=== PATIENT | male | born 1945 | race Asian ===

== ENCOUNTER 2018-10-03 09:48 | Inpatient (IN) | payer OTHER ==
[2018-10-03 10:15] LABS: ADD MAN DIFF? NO
[2018-10-03 10:16] LABS: WHITE BLOOD COUNT 6.8 10^3/ul (4.8-10.8)
[2018-10-03 10:16] LABS: BASOPHIL # 0.1 10^3/ul (0.0-0.1); BASOPHILS % 1.2 % (0.0-2.0); EOSINOPHILS # 0.2 10^3/ul (0.0-0.5); EOSINOPHILS % 2.2 % (0.0-7.0); HEMATOCRIT 41.9 % (42.0-52.0); HEMOGLOBIN 14.1 g/dl (14.0-18.0); LYMPHOCYTES # 1.6 10^3/ul (0.8-2.9); LYMPHOCYTES % 23.7 % (15.0-51.0); MEAN CORPUSCULAR HEMOGLOBIN 31.5 pg (29.0-33.0); MEAN CORPUSCULAR HGB CONC 33.7 g/dl (32.0-37.0); MEAN CORPUSCULAR VOLUME 93.7 fl (82.0-101.0); MEAN PLATELET VOLUME 9.7 fl (7.4-10.4); MONOCYTE # 0.7 10^3/ul (0.3-0.9); MONOCYTES % 10.5 % (0.0-11.0); NEUTROPHIL # 4.2 10^3/ul (1.6-7.5); PLATELET COUNT 243 10^3/UL (140-415); RED BLOOD COUNT 4.47 10^6/ul (4.70-6.10); RED CELL DISTRIBUTION WIDTH 16.5 % (11.5-14.5)
[2018-10-03] MEDS: IODIXANOL LOCM 100 ML BTL (10:31)
[2018-10-03] MEDS: SOD CHLORIDE 0.9% 100 ML (10:31)
[2018-10-03 10:33] LABS: ANION GAP 11 (5-13); BLOOD UREA NITROGEN 31 mg/dl (7-20); CALCIUM 9.4 mg/dl (8.4-10.2); CARBON DIOXIDE 29 mmol/L (21-31); CHLORIDE 105 mmol/L (97-110); CHOL/HDL RATIO 2.1 RATIO; CHOLESTEROL 174 mg/dl (100-200); CREATINE KINASE 49 IU/L (23-200); CREATININE 0.97 mg/dl (0.61-1.24); GLUCOSE 108 mg/dl (70-220); HDL CHOLESTEROL 81 mg/dl (31-75); LDL CHOLESTEROL,CALCULATED 63 mg/dl; POTASSIUM 4.8 mmol/L (3.5-5.1); SODIUM 145 mmol/L (135-144); TRIGLYCERIDES 150 mg/dl (0-149)
[2018-10-03 10:33] LABS: HEMOGLOBIN A1C 5.3 % (0-5.9)
[2018-10-03 10:36] LABS: INR 0.88; PT RATIO 0.9
[2018-10-03 10:37] LABS: PARTIAL THROMBOPLASTIN TIME 31.2 Sec (23.0-35.0)
[2018-10-03 10:47] LABS: CK INDEX 0.7; CK-MB 0.35 ng/ml (0.0-2.4); TROPONIN-I < 0.012 ng/ml (0.000-0.120)
[2018-10-03] MEDS: LORAZEPAM 2 MG INJ IV (11:06)
[2018-10-03] MEDS: SOD CHLORIDE 0.9% 1,000 ML IV ×2 (11:06→16:17)
[2018-10-03] MEDS: LEVETIRACETAM 1000 MG (PMX) 100 ML IVPB (11:40)
[2018-10-03 13:55] LABS: ADD UMIC NO; UR ASCORBIC ACID NEGATIVE (NEGATIVE); UR BILIRUBIN (Dip) NEGATIVE (NEGATIVE); UR BLOOD (Dip) NEGATIVE (NEGATIVE); UR CLARITY CLEAR (CLEAR); UR COLOR STRAW (YELLOW); UR GLUCOSE (Dip) NEGATIVE (NEGATIVE); UR KETONES (Dip) NEGATIVE (NEGATIVE); UR LEUKOCYTE ESTERASE (Dip) NEGATIVE Leu/ul (NEGATIVE); UR NITRITE (Dip) NEGATIVE (NEGATIVE); UR TOTAL PROTEIN (Dip) NEGATIVE (NEGATIVE); UR UROBILINOGEN (Dip) NEGATIVE (NEGATIVE)
[2018-10-03] MEDS ORDERED: ONDANSETRON 4 MG INJ IV ×2 (14:00→15:00)
[2018-10-03] MEDS ORDERED: ACETAMINOPHEN 325 MG TAB PO (14:00)
[2018-10-03] MEDS ORDERED: NACL 0.9% 3 ML SYG IV (15:00)
[2018-10-03 16:14] LABS: HEPATITIS B SURFACE ANTIGEN NEGATIVE (NEGATIVE)
[2018-10-03 16:31] LABS: HEPATITIS C VIRAL ANTIBODY NEGATIVE (NEGATIVE)
[2018-10-03 16:31] LABS: HEPATITIS B SURFACE ANTIBODY NEGATIVE (NEGATIVE)
[2018-10-03] MEDS: TAMSULOSIN (SR) 0.4 MG CAP PO (20:12)
[2018-10-03] MEDS: LOSARTAN 25 MG TAB PO (20:12)
[2018-10-03] MEDS: ATORVASTATIN 10 MG TAB PO (20:12)
[2018-10-03] MEDS: ENTECAVIR 0.5 MG PO (20:13)
[2018-10-03] MEDS: TIMOLOL 0.25% 5 ML OPH BOTH EYES (20:13)
[2018-10-04] MEDS: PANTOPRAZOLE (EC) 40 MG TAB PO (05:05)
[2018-10-04 06:51] LABS: ADD MAN DIFF? NO
[2018-10-04 07:05] LABS: WHITE BLOOD COUNT 7.6 10^3/ul (4.8-10.8)
[2018-10-04 07:06] LABS: BASOPHIL # 0.1 10^3/ul (0.0-0.1); BASOPHILS % 0.8 % (0.0-2.0); EOSINOPHILS # 0.2 10^3/ul (0.0-0.5); EOSINOPHILS % 2.8 % (0.0-7.0); HEMATOCRIT 36.1 % (42.0-52.0); HEMOGLOBIN 12.3 g/dl (14.0-18.0); LYMPHOCYTES # 1.4 10^3/ul (0.8-2.9); LYMPHOCYTES % 18.9 % (15.0-51.0); MEAN CORPUSCULAR HEMOGLOBIN 31.5 pg (29.0-33.0); MEAN CORPUSCULAR HGB CONC 34.1 g/dl (32.0-37.0); MEAN CORPUSCULAR VOLUME 92.3 fl (82.0-101.0); MEAN PLATELET VOLUME 10.6 fl (7.4-10.4); MONOCYTE # 0.8 10^3/ul (0.3-0.9); MONOCYTES % 10.2 % (0.0-11.0); NEUTROPHIL # 5.1 10^3/ul (1.6-7.5); PLATELET COUNT 215 10^3/UL (140-415); RED BLOOD COUNT 3.91 10^6/ul (4.70-6.10); RED CELL DISTRIBUTION WIDTH 16.4 % (11.5-14.5)
[2018-10-04 07:38] LABS: ALANINE AMINOTRANSFERASE 23 IU/L (13-69); ALBUMIN/GLOBULIN RATIO 1.81; ALKALINE PHOSPHATASE 46 IU/L (42-121); ANION GAP 11 (5-13); ASPARTATE AMINO TRANSFERASE 36 IU/L (15-46); BILIRUBIN,INDIRECT 0.9 mg/dl (0-1.1); BILIRUBIN,TOTAL 0.9 mg/dl (0.2-1.3); BLOOD UREA NITROGEN 20 mg/dl (7-20); CALCIUM 9.2 mg/dl (8.4-10.2); CARBON DIOXIDE 29 mmol/L (21-31); CHLORIDE 104 mmol/L (97-110); CREATININE 0.86 mg/dl (0.61-1.24); GLUCOSE 100 mg/dl (70-220); MAGNESIUM 2.3 mg/dl (1.7-2.5); PHOSPHORUS 3.5 mg/dl (2.5-4.9); POTASSIUM 3.8 mmol/L (3.5-5.1); SODIUM 144 mmol/L (135-144); TOTAL PROTEIN 6.2 g/dl (6.1-8.1)
[2018-10-04 07:42] LABS: HEMOGLOBIN A1C 5.3 % (0-5.9)
[2018-10-04 08:09] LABS: THYROID STIMULATING HORMONE 0.906 MIU/L (0.465-4.680)
[2018-10-04] MEDS: TIMOLOL 0.25% 5 ML OPH BOTH EYES (08:44)
[2018-10-04] MEDS: AMLODIPINE 10 MG TAB PO (08:45)
[2018-10-04] MEDS: FINASTERIDE 5 MG TAB PO (08:45)
[2018-10-04] MEDS: LOSARTAN 25 MG TAB PO (08:45)
[2018-10-04] MEDS: LEVETIRACETAM 500 MG TAB PO (12:37)
== END 2018-10-04 15:43 | disposition home or self-care (01) | DRG 101 ==
LOC: E/R 09:48 → TEL 13:58
DX: R56.9 Unspecified convulsions (principal); I69.351 Hemiplegia and hemiparesis following cerebral infarction affecting right dominant side; I69.320 Aphasia following cerebral infarction; D29.1 Benign neoplasm of prostate; I10 Essential (primary) hypertension; Z87.891 Personal history of nicotine dependence
CPT/HCPCS: 36415; 70450; 70496; 70498; 70553; 71045; 80048; 80053; 80061; 81003; 82550; 82553; 83036; 83735; 84100; 84443; 84484; 85025; 85610; 85730; 86706; 86803; 87340; 93005; 95819; 96361; 96365; 96375; 99285-25